=== PATIENT | male | born 2000 | race African-American/Black ===

== ENCOUNTER 2020-09-05 09:42 | Emergency (ER) | payer OTHER ==
[~2020-09-05] VITALS: Ht 177.8 cm; Wt 64.0 kg
== END 2020-09-05 11:04 | disposition home or self-care (01) ==
LOC: ER 09:42
DX: S01.02XA Laceration with foreign body of scalp, initial encounter (principal); W45.8XXA Other foreign body or object entering through skin, initial encounter; Y93.89 Activity, other specified; Y92.89 Other specified places as the place of occurrence of the external cause; Y99.8 Other external cause status

== ENCOUNTER → 2020-09-05 | Emergency (ER) | payer OTHER ==
[~2020-09-05] VITALS: Ht 177.8 cm; Wt 64.0 kg
== END | disposition left against medical advice (07) ==
LOC: ER 01:18
DX: Z53.20 Procedure and treatment not carried out because of patient's decision for unspecified reasons (principal)